=== PATIENT | female | born 1995 | race Caucasian/White ===

== ENCOUNTER 2019-05-07 18:36 | Emergency (ER) | payer BC, MEDICAID ==
[2019-05-07] MEDS ORDERED: buPROPion 100 MG Tab.SR ONE (18:50)
--- NOTE | 2019-05-08 07:08 | EDM.PDOCBH ---
ED HPI GENERAL MEDICAL PROBLEM - General Chief Complaint: Behavioral/Psych Stated Complaint: SUICIDAL IDEATION Time Seen by Provider: 05/07/19 19:50 Source of Information: Reports: Patient History Limitations: Reports: No Limitations - History of Present Illness INITIAL COMMENTS - FREE TEXT/NARRATIVE: This is a calm 23yo F brought in by law enforcement for concerns of suicidal and homicidal threats. Patient denies these threats and states she was angry with her mother and arguing and was just yelling multiple things more to get her mothers attention and out of anger and she does not recall all the things that were said. She states she regrets saying that she would harm herself or others and that she didn't mean it. She has never thought about harming herself or others and has never had plans. She was admitted once in the past to a facility for chemical dependency that had other kids with depression but was not in inpatient psychiatric services. She has had a DUI in the past and was court ordered to see behavioral health for it. She has been on wellbutrin in the past for anxiety but denies ever being treated for depression. She does feel upset and sad that she lost her job but states she was arguing with her mother because her mother fired her and she is upset that she has to find another way to support herself and her kids. She states she still lets her mother be with her kids and would not do anything spiteful to prevent her mother from caring or seeing her kids. She states if she needed money she would ask her father eventhough it would be difficult for her to ask. She denies any threat to others or herself but does feel angry and some depression through the past few months. She states the arguments have been ongoing the past months and have escalated until her mother fired her and then they starting arguing and she feels that her mother partly called the police to remove her out of spite. Patient does feel remorse for saying things and understands the seriousness of her actions. Patient willing to work with her PCP for further management and willing to start on an antidepressant and follow up closely with her PCP. Onset: Sudden Duration: Resolved Prior to Arrival - Related Data Allergies Allergy/AdvReac Type Severity Reaction Status Date / Time No Known Allergies Allergy Verified 05/07/19 19:26 Home Meds: Home Meds Etonogestrel [Nexplanon] 68 mg SQ ASDIRECTED 05/07/19 [History] Past Medical History HEENT History: Reports: None [employer] History: Reports: - Past Surgical History HEENT Surgical History: Reports: None ED ROS GENERAL - Review of Systems Review Of Systems: ROS reveals no pertinent complaints other than HPI. ED EXAM, BEHAVIORAL HEALTH - Physical Exam Exam: See Below Exam Limited By: No Limitations General Appearance: Alert, WD/WN, No Apparent Distress Eye Exam: Bilateral Eye: EOMI, PERRL Ears: Normal External Exam Nose: Normal Inspection Throat/Mouth: Normal Inspection Head: Atraumatic, Normocephalic Neck: Normal Inspection Respiratory/Chest: No Respiratory Distress Cardiovascular: Normal Peripheral Pulses Back Exam: Normal Inspection Extremities: Normal Inspection Neurological: Alert, Normal Mood/Affect, CN II-XII Intact COURSE, BEHAVIORAL HEALTH COMP - Course Vital Signs: Last Vital Signs Temp 37.2 C 05/07/19 19:15 Pulse 101 H 05/07/19 19:15 Resp 16 05/07/19 19:15 BP 120/72 05/07/19 19:15 Pulse Ox 100 05/07/19 19:15 Departure - Departure Time of Disposition: 20:20 Disposition: Home, Self-Care 01 Condition: Good Clinical Impression: Depressive disorder - Discharge Information Instructions: Living With Depression, Depression Screening, Bupropion sustained -release tablets (Depression/Mood Disorders) Forms: ED Department Discharge Additional Instructions: Take the wellbutrin in the morning again and fill the script. Take it as prescribed, be careful to not miss doses. Follow-up in the clinic with your primary care provider. Also recommend finding a provider that is not your family member. - Problem List & Annotations (1) Anger reaction SNOMED Code(s): 168743699 Code(s): R45.4 - IRRITABILITY AND ANGER Status: Resolved Priority: High (2) Depression SNOMED Code(s): 22824362 Code(s): F32.9 - MAJOR DEPRESSIVE DISORDER, SINGLE EPISODE, UNSPECIFIED Status: Acute Priority: High Qualifiers: Depression Type: unspecified Qualified Code(s): F32.9 - Major depressive disorder, single episode, unspecified (3) Anxiety SNOMED Code(s): 32366751 Code(s): F41.9 - ANXIETY DISORDER, UNSPECIFIED Status: Acute Priority: High - Problem List Review Problem List Initiated/Reviewed/Updated: Yes - Assessment/Plan Plan: Patient counseled extensively and it does not appear she is a danger to herself or others. She denies any prior history of violence to herself or others. She denies any plans either. She is over her anger and regrets her outburst. She is willing to try to work things out and/or move on to another job which she has options already. She will start on wellbutrin 100mg bid for 3 days and then increase to 100mg TID. She will f/u with Dr. Pan in 1-2 weeks and further f /u as directed. Patient understands the risks of starting new meds and will f/u sooner if any concerns of side effects or changing/worsening moods or thoughts. Patient to f/u in ER for homicidal or suicidal thoughts. Patient agrees with plan of care and f/u.
== END 2019-05-07 20:20 | disposition home or self-care (01) ==
LOC: LB.ED 18:36
DX: F32.9 Major depressive disorder, single episode, unspecified (principal)
CPT/HCPCS: 99284; A9270-GY

== ENCOUNTER 2023-04-23 21:05 | Emergency (ER) | payer MEDICAID ==
[2023-04-23] MEDS ORDERED: Amoxicillin 500 MG Cap ONE (21:45)
== END 2023-04-23 21:47 | disposition home or self-care (01) ==
LOC: LB.ED 21:05
DX: L03.032 Cellulitis of left toe (principal)
CPT/HCPCS: 99283; A9270-GY